=== PATIENT | male | born 1980 | race Caucasian/White ===

== ENCOUNTER 2023-04-27 14:11 | Emergency (ER) | payer OTHER ==
--- OUTSIDE RECORDS SUMMARY | 2023-04-27 14:13 | XMS REPORT | Continuity of Care Document ---
:1980 Author Organization [facility] t Address [address] [place] [address] [place] [id number] Care Team Providers Name Role Phone LAMONT GIBSON Attending Clinician Unavailable LAMONT GIBSON Admitting Clinician Unavailable Payers Payer Name Policy Type Policy Number Effective Date Expiration Date S ource [id number] 1959 00:00:00 Problems This patient has no known problems. Allergies, Adverse Reactions, Alerts This patient has no known allergies or adverse reactions. Medications This patient has no known medications. Vital Signs Vital Name Observation Time Observation Value Comments Source Height 2013-03-27 19:32:00 170.18 CM Weight 2013-03-27 19:32:00 112.2 KG Procedures This patient has no known procedures. Encounters Start End Encounter Admission Attending Care Care Encounter Source Date/Time Date/Time Type Type Clinicians Facility Department ID 2013-03-27 2013-03-27 Emergency 1 APOLLO GIBSON EMD [id number] [facility] [address] 18:48:00 21:32:00 LAMONT silver (MAKAYLA/GAURAV V/SA) Results This patient has no known results.
--- NOTE | 2023-04-27 15:37 | RAD REPORT ---
EXAM DESCRIPTION: RAD - Chest Pa And Lat (2 Views) - 04/27/2023 3:19 pm CLINICAL HISTORY: Cough;Fever Chest pain. COMPARISON: <Comparisons> FINDINGS: The lungs are clear. The heart is normal in size. No displaced fractures. IMPRESSION: No acute or concerning finding suspected.
--- NOTE | 2023-04-27 16:16 | ER ---
Nurse's Notes [facility] Name: Oscar Whitney Age: 42 yrs Sex: Male : 1980 Arrival Date: 04/27/2023 Time: 14:11 Bed DIS1 Private MD: Diagnosis: Acute pharyngitis, unspecified;Cough Presentation: 04/27 14:30 Chief complaint: Spouse and/or significant other states: fever, burning in chest , iw feels like bronchitis, congestion , started as a sore throat yesterday , his home COVID tests were negative yesterday. Coronavirus screen: Client presents with at least one sign or symptom that may indicate coronavirus-19. Ebola Screen: Patient negative for fever greater than or equal to 101.5 degrees Fahrenheit, and additional compatible Ebola Virus Disease symptoms Patient denies exposure to infectious person. Patient denies travel to an Ebola-affected area in the 21 days before illness onset. No symptoms or risks identified at this time. Initial Sepsis Screen: Does the patient meet any 2 criteria? No. Patient's initial sepsis screen is negative. Does the patient have a suspected source of infection? No. Patient's initial sepsis screen is negative. Risk Assessment: Do you want to hurt yourself or someone else? Patient reports no desire to harm self or others. Onset of symptoms was April 26, 2023. 14:30 Method Of Arrival: Ambulatory iw 14:30 Acuity: TATYANA 3 iw Historical: - Allergies: 14:32 No Known Allergies; iw - PMHx: 14:32 Hypertensive disorder; Diabetes mellitus; iw - PSHx: 14:32 None; iw - Immunization history:: Adult Immunizations. - Social history:: Smoking status: Patient denies any tobacco usage or history of. Vital Signs: 14:30 BP 115 / 63; Pulse 93; Resp 16; Temp 100.2; Pulse Ox 98% on R/A; Weight 106.59 kg; iw Height 5 ft. 7 in. ; 14:30 Body Mass Index 36.81 (106.59 kg, 170.18 cm) ED Course: 14:12 Patient arrived in ED. rg4 14:16 Lennox Braun PA is PHCP. cp 14:16 Sandor Aparicio MD is Attending Physician. cp 14:32 Triage completed. iw 14:32 Arm band placed on. iw 14:46 Jackie Hairston, RN is Primary Nurse. iw 14:50 COVID swab sent to lab. Flu and/or RSV swab sent to lab. Strep swab sent to lab. tm3 15:21 XRAY Chest Pa And Lat (2 Views) In Process Unspecified. EDMS Administered Medications: No medications were administered Outcome: 16:16 Discharge ordered by MD. ananya 17:02 Discharged to home ambulatory, with family. iw 17:02 Condition: good 17:02 Discharge instructions given to patient, family, Instructed on discharge instructions, follow up and referral plans. Demonstrated understanding of instructions, follow-up care, medications. 17:03 Patient left the ED. iw Signatures: Dispatcher [employer] EDMS Charles Kovacs tm3 Jackie Hairston, RN RN iw Lennox Braun PA PA Johanna Pina rg4
--- NOTE | 2023-04-27 16:17 | EDPHYS ---
Physician Documentation [facility] Name: Oscar Whitney Age: 42 yrs Sex: Male : 1980 Arrival Date: 04/27/2023 Time: 14:11 Bed DIS1 Private MD: ED Physician Sandor Aparicio HPI: 04/27 14:45 This 42 yrs old Male presents to ER via Ambulatory with complaints of Fever. cp 14:45 The patient reports fever, that was measured at 102 degrees Fahrenheit. cp 14:45 Onset: The symptoms/episode began/occurred this morning. Associated signs and symptoms: cp Pertinent positives: sore throat that started yesterday, Pertinent negatives: diarrhea, headache, sinus congestion, sinus drainage, skin rash, vomiting. 14:45 Severity of symptoms: in the emergency department the symptoms are unchanged despite cp home interventions. Historical: - Allergies: 14:32 No Known Allergies; iw - PMHx: 14:32 Hypertensive disorder; Diabetes mellitus; iw - PSHx: 14:32 None; iw - Immunization history:: Adult Immunizations. - Social history:: Smoking status: Patient denies any tobacco usage or history of. ROS: 14:50 Constitutional: Positive for body aches, Negative for fever, poor PO intake. cp 14:50 Eyes: Negative for injury, pain, redness, and discharge. cp 14:50 ENT: Positive for sore throat, Negative for drainage from ear(s), ear pain, difficulty swallowing, difficulty handling secretions. 14:50 Cardiovascular: Negative for chest pain, edema, palpitations. 14:50 Respiratory: Positive for chest congestion, Negative for shortness of breath. 14:50 Abdomen/GI: Negative for abdominal pain, vomiting, diarrhea, constipation. 14:50 Skin: Negative for rash. 14:50 Neuro: Positive for headache, Negative for altered mental status, weakness. 14:50 All other systems are negative. Exam: 14:55 Constitutional: The patient appears in no acute distress, alert, awake, non-toxic, well cp developed, well nourished. 14:55 Head/Face: Normocephalic, atraumatic. cp 14:55 Eyes: Periorbital structures: appear normal, Conjunctiva: normal, no exudate, no injection, Sclera: no appreciated abnormality, Lids and lashes: appear normal, bilaterally. 14:55 ENT: External ear(s): are unremarkable, Ear canal(s): are normal, clear, TM's: dullness, bilaterally, Nose: is normal, Mouth: Lips: moist, Oral mucosa: moist, Posterior pharynx: Airway: no evidence of obstruction, patent, Tonsils: no enlargement, no exudate, erythema, that is mild, exudate, is not appreciated. 14:55 Neck: ROM/movement: is normal, is supple, without pain, no range of motions limitations, no meningismus, Lymph nodes: no appreciated lymphadenopathy. 14:55 Chest/axilla: Inspection: normal. 14:55 Cardiovascular: Rate: normal, Rhythm: regular. 14:55 Respiratory: the patient does not display signs of respiratory distress, Respirations: normal, no use of accessory muscles, no retractions, labored breathing, is not present, Breath sounds: are clear throughout, no decreased breath sounds, no stridor, no wheezing. 14:55 Abdomen/GI: Exam negative for discomfort, distension, guarding, Inspection: abdomen appears normal. 14:55 Skin: no rash present. Vital Signs: 14:30 BP 115 / 63; Pulse 93; Resp 16; Temp 100.2; Pulse Ox 98% on R/A; Weight 106.59 kg; iw Height 5 ft. 7 in. ; 14:30 Body Mass Index 36.81 (106.59 kg, 170.18 cm) iw MDM: 14:41 Patient medically screened. cp 15:00 Differential diagnosis: viral Infection, bacterial infection, URI, bronchitis, cp pneumonia meningitis. 16:15 Data reviewed: vital signs, nurses notes, lab test result(s), radiologic studies, plain cp films. 16:15 Care significantly affected by the following chronic conditions: Diabetes, cp Hypertension. Counseling: I had a detailed discussion with the patient and/or guardian regarding the historical points, exam findings, and any diagnostic results supporting the discharge/admit diagnosis, lab results, to return to the emergency department if symptoms worsen or persist or if there are any questions or concerns that arise at home. 04/27 14:42 Order name: COVID-19 SARS RT PCR; Complete Time: 16:12 04/27 16:12 Interpretation: Reviewed. 04/27 14:42 Order name: Influenza Screen (a \T\ B); Complete Time: 16:12 cp 04/27 14:42 Order name: Strep cp 04/27 15:39 Order name: Throat Culture EDMS 04/27 14:51 Order name: XRAY Chest Pa And Lat (2 Views); Complete Time: 16:12 cp 04/27 16:12 Interpretation: Report reviewed. cp Administered Medications: No medications were administered Disposition Summary: 04/27/23 16:16 Discharge Ordered Location: Home cp Problem: new cp Symptoms: have improved cp Condition: Stable cp Diagnosis - Acute pharyngitis, unspecified cp - Cough cp Followup: cp - With: Private Physician - When: 2 - 3 days - Reason: Worsening of condition Discharge Instructions: - Discharge Summary Sheet cp - Pharyngitis cp - Sore Throat cp - Cough, Adult cp Forms: - Medication Reconciliation Form cp - Thank You Letter cp - Antibiotic Education cp - Prescription Opioid Use cp - Patient Portal Instructions cp - Leadership Thank You Letter cp Prescriptions: - Bromfed DM 2-30-10 mg/5 mL Oral syrup - administer 10 milliliter by ORAL route 3-4 times daily as needed for cold cp symptoms; 180 milliliter; Refills: 0, Product Selection Permitted - Ibuprofen 800 mg Oral Tablet - take 1 tablet by ORAL route every 8 hours As needed take with food; 30 tablet; cp Refills: 0, Product Selection Permitted Signatures: Dispatcher [employer] Jackie Dickens, RN RN Lennox Romero PA PA cp
[2023-04-27 17:34] VITALS: BP 115/63; TEMP 100.2; O2SAT 98
== END 2023-04-27 17:03 | disposition home or self-care (01) ==
LOC: ER 14:11
DX: J02.9 Acute pharyngitis, unspecified (principal); R05.9 Cough, unspecified; E11.9 Type 2 diabetes mellitus without complications; I10 Essential (primary) hypertension; Z20.822 Contact with and (suspected) exposure to COVID-19
CPT/HCPCS: 71046; 87070; 87081; 87635; 87804